=== PATIENT | male | born 1970 | race Caucasian/White ===

== ENCOUNTER 2017-05-17 08:28 | Observation (INO) | payer BC ==
[2017-05-17] MEDS ORDERED: ASPIRIN 81 MG CHEWABLE TABLETS PO ONE (09:05)
--- NOTE | 2017-05-17 09:14 | PDOC ---
History of Present Illness - General Chief Complaint: Chest Pain Stated Complaint: CHEST PAIN Time Seen by Provider: 05/17/17 08:41 History Source: Patient Exam Limitations: No Limitations - History of Present Illness Initial Comments: 05/17/17 09:10 46 year old male with pmhx of HTN, HLD, CARMEN(on bipap),depression , anxiety who present to the ED by EMS due to med sternal chest pain, 8/10 , pressure like not related to position, local non radiating to the arm or neck after emotional stress at work. The pain is constant,associated with sob, blurry vision, lightheadedness , little headache.pt reports 20 pound weight gain last year , affected his ability to walk and climb stairs. pt pt denies any nausea vomiting diarrhea or constipation, he denies recent cold or sick contact, denies fever , chills, denies any LE swelling,denies any urinary symptoms or abdominal pain. pt has echo, stress test and ekg one month ago at [facility] , result was normal (spoken with his administrative technician Dr Quinn over the phone [phone]) PCP: Dr. Jesus PMH: hTN, HLD, CARMEN , depression, anxiety PSH: denies Allergies : Augmentin, meds: enalapril 10 mg po daily, Lipitor 60 mg po daily, Xanax 1 mg po as needed, aciphex 20 mg po bid trintellix 25 mg po daily. FH: grand parents and father with CABG at age of 40 , mother with DM and HTN , father lung cancer , pneumonia. Social: quit smoking 11 years ago. smoked 1.5 ppd for 21 years, drink alcohol socially, denies any elicit drug abuse. Physical exam: General: agitated man , tachycardia tachypnech Head: NC/AT Eyes: BRIGIDO, EOMI, anicteric sclera, ENT: MM membranes Lungs: CTA B/L , no wheezes, no crackles, tacy pnech Heart: tachy cardic, normal S1, S2, no MRG Abdomen: obese, soft, ND, NT, +BS all Q Legs: no edema Neuro: no focal deficit , normal speech, normal gait Skin: warm and dry Psych: little agitated DD: precardial chest pain non significant /anxiety NSTEMI AR PE Atypical chest pain musculoskeletal work up: EKG: sinus tachy irais non specific st t wave changes , qtc 448 cardiac profile , bnp lipid panel PT, PTT, INR CXR cbc, cmp , mg , morphine 1 mg for pain o2 as needed to keep o2 sat > 92 % ASA chewable 324 mg once 05/17/17 09:22 05/17/17 09:37 05/17/17 09:43 05/17/17 09:43 05/17/17 10:38 trop came back positive 0.16 , will trend, second trop @ 3 pm pt still tachycardia 127 will give one dose of Lopressor 5 mg ivpush Heart score of 5 cxr no acute path 05/17/17 10:40 05/17/17 10:47 05/17/17 10:48 Past History - Past Medical History Allergies/Adverse Reactions: Allergies Allergy/AdvReac Type Severity Reaction Status Date / Time amoxicillin [From Augmentin] Allergy Verified 05/17/17 09:08 clavulanic acid Allergy Verified 05/17/17 09:08 [From Augmentin] Home Medications: Ambulatory Orders Alprazolam [Xanax] 1 mg PO DAILY 05/17/17 Atorvastatin Ca [Lipitor] 80 mg PO HS 05/17/17 Enalapril Maleate [Vasotec] 20 mg PO DAILY 05/17/17 Rabeprazole Sodium [Aciphex] 20 mg PO DAILY 05/17/17 ED Treatment Course - LABORATORY CBC & Chemistry Diagram: 05/17/17 09:35 05/17/17 09:35 - RADIOLOGY Radiology Studies Ordered: Category Date Time Status CHEST X-RAY PORTABLE* [RAD] Stat Radiology 05/17/17 09:06 Ordered *DC/Admit/Observation/Transfer Diagnosis at time of Disposition: AMA - Signed out against medical advice - Discharge Dispostion Disposition: AGAINST MEDICAL ADVICE - Referrals - Patient Instructions - Post Discharge Activity
[2017-05-17 09:15] VITALS: BMI 36.1
[2017-05-17] MEDS ORDERED: morphine CARPU-JECT 2 MG/1 ML DISP.SYRIN IVPUSH ONE (09:21)
[2017-05-17] MEDS ORDERED: morphine SULFATE 4 MG/ML VIAL ONE (09:28)
[2017-05-17] MEDS ORDERED: ALPRAZolam 2 MG TABLET PO ONE ×2 (09:38→11:57)
--- NOTE | 2017-05-17 09:49 | PDOC ---
Attending Attestation - Resident Resident Name: Shailesh Hagen - ED Attending Attestation I have performed the following: I have examined & evaluated the patient, The case was reviewed & discussed with the resident, I agree w/resident's findings & plan, Exceptions are as noted - HPI HPI: 05/17/17 09:44 46-year-old male with history of hypertension and high cholesterol presents with chest pain and palpitations after verbal argument at work this morning. Patient had verbal altercation with his superiors at work, developed precordial chest pressure with palpitations and got very worked up, EMS was activated. Symptoms are persistent. At baseline, patient has had exertional fatigue in the setting of 20 pound weight gain over the last 1 year, never gets chest pain. He had a normal echocardiogram and stress test 1 month ago as part of preoperative clearance for bariatric surgery. He stopped smoking 11 years ago, denies any drug or alcohol use, denies any PE risk factors. Denies any history of panic attacks but he does take Xanax every night - Physicial Exam PE: 05/17/17 09:46 Regular tachycardia at 130, intermittently tachypneic when becomes more anxious , O2 sat normal, blood pressure slightly elevated at 140/100 Alert, ambulated to the bathroom without difficulty and without change in his symptoms Heart is regular tachycardia, lungs are clear No edema Anxious during exam, no other acute psych issues - Medical Decision Making 05/17/17 09:47 Patient seen and evaluated with the resident. I agree with the overall evaluation, assessment, and management with the following summary of visit: 46-year-old male with chest pain in the setting of emotional triggers, presents with tachycardia and elevated blood pressure and anxiety. Suspect this is all part of a catecholamine surge, he has no known significant coronary artery disease with recent chest test just 1 month ago. Chest pain protocol initiated, will give aspirin and performed chest x-ray EKG shows sinus tachycardia without acute ischemic changes Trial of benzodiazepine given his history of Xanax use and the clinical setting Given atypical presentation and recently normal stress test, patient is a candidate for serial troponin if vitals normalize and his symptoms improve. 05/17/17 11:13 trop 0.16. persistent tachycardia despite ativan. given demand ischemia, rate controlled with toprol with improved HR to 95 and improved sxs. given equivocal trop and clinical presentation, placed on obs tele and signout given to Dr. hancock. Heart Score/ECG Review #1 General ECG Interpretation: Sinus Rhythm (tachycardia), Normal Intervals, No acute ischemic changes
[2017-05-17] MEDS ORDERED: LORazepam 2 MG/ML SDV VIAL ONE (09:52)
[2017-05-17 09:59] LABS: BASO % 0.4 % (0-2.0); EOS % 0.3 % (0-4.5); HEMOGLOBIN 15.1 GM/dL (11.7-16.9); LYMPH % 8.1 % (8-40); MCH 31.2 pg (25.7-33.7); MCHC 34.3 g/dl (32.0-35.9); MEAN PLT VOLUME 9.4 fl (7.5-11.1); NEUT % 85.2 % (42.8-82.8); PLATELET COUNT 248 K/MM3 (134-434); RBC 4.84 M/mm3 (4.00-5.60); RDW 13.1 % (11.9-15.9)
[2017-05-17 10:13] LABS: ALBUMIN 3.5 g/dl (3.4-5.0); ANION GAP 6 (8-16); BILIRUBIN,TOTAL 0.2 mg/dL (0.2-1.0); BLOOD UREA NITROGEN 25 mg/dL (7-18); CALCIUM 8.6 mg/dL (8.5-10.1); CHLORIDE 107 mmol/L (98-107); CO2 28 mmol/L (21-32); CREATININE 1.1 mg/dL (0.7-1.3); GLUCOSE,RANDOM 125 mg/dL (74-106); POTASSIUM 4.5 mmol/L (3.5-5.1); SGOT/AST 16 U/L (15-37); SGPT/ALT 20 U/L (12-78); SODIUM 141 mmol/L (136-145); TOT PROT 7.3 g/dl (6.4-8.2)
[2017-05-17 10:16] LABS: ALK PHOS 82 U/L (45-117)
[2017-05-17 10:31] LABS: INR 0.97 (0.82-1.09)
[2017-05-17] MEDS ORDERED: METOPROLOL TARTRATE 5 MG/5 ML VIAL IVPUSH ONE (10:38)
[2017-05-17] MEDS ORDERED: metoPROLOL SUCCINATE 25 MG TAB.SR.24H (FP) PO ONE (11:05)
[2017-05-17] MEDS ORDERED: METOPROLOL TARTRATE 5 MG/5 ML VIAL ONE (11:05)
--- NOTE | 2017-05-17 11:06 | EKG ---
Test Reason : Blood Pressure : / mmHG Vent. Rate : 134 BPM Atrial Rate : 134 BPM P-R Int : 138 ms QRS Dur : 086 ms QT Int : 300 ms P-R-T Axes : 047 061 025 degrees QTc Int : 448 ms SINUS TACHYCARDIA CANNOT RULE OUT ANTERIOR INFARCT , AGE UNDETERMINED ABNORMAL ECG WHEN COMPARED WITH ECG OF 01-MAY-2008 09:52, NO SIGNIFICANT CHANGE WAS FOUND Confirmed by Ramón Brady ([id number]) on 05/17/2017 11:06:01 AM Referred By: Confirmed By:Ramón Brady
--- NOTE | 2017-05-17 11:36 | HP ---
Admitting History and Physical - Primary Care Physician PCP: Rony Jesus - Admission Chief Complaint: chest pain History of Present Illness: ER History - History of Present Illness Initial Comments: 05/17/17 09:10 46 year old male with pmhx of HTN, HLD, CARMEN(on bipap),depression , anxiety who present to the ED by EMS due to med sternal chest pain, 8/10 , pressure like not related to position, local non radiating to the arm or neck after emotional stress at work. The pain is constant,associated with sob, blurry vision, lightheadedness , little headache.pt reports 20 pound weight gain last year , affected his ability to walk and climb stairs. pt pt denies any nausea vomiting diarrhea or constipation, he denies recent cold or sick contact, denies fever , chills, denies any LE swelling,denies any urinary symptoms or abdominal pain. 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 Jesus Pt seen by me in ER Pt is a school fundraising director and this AM at work he had stress where he experienced chest pain -- pressure like sensation -- no radiation of pain . No nausea, diaphoresis Pt very anxious, suffers from anxiety . His heart rate was also racing. No SOB had cardiology evaluation for bariatric surgery this month -- negative stress test History Source: Patient Limitations to Obtaining History: No Limitations - Past Medical History Cardiovascular: Yes: HTN, Hyperlipdemia Pulmonary: Yes: Sleep Apnea Psych: Yes: Anxiety - Smoking History Smoking history: Former smoker Have you smoked in the past 12 months: No If you are a former smoker, when did you quit?: 4 Home Medications - Allergies Allergies/Adverse Reactions: Allergies Allergy/AdvReac Type Severity Reaction Status Date / Time amoxicillin [From Augmentin] Allergy Verified 05/17/17 09:08 clavulanic acid Allergy Verified 05/17/17 09:08 [From Augmentin] - Home Medications Home Medications: Ambulatory Orders Alprazolam [Xanax] 1 mg PO DAILY 05/17/17 Atorvastatin Ca [Lipitor] 80 mg PO HS 05/17/17 Enalapril Maleate [Vasotec] 20 mg PO DAILY 05/17/17 Rabeprazole Sodium [Aciphex] 20 mg PO DAILY 05/17/17 Review of Systems - Review of Systems Constitutional: denies: Chills, Fever, Weakness Cardiovascular: reports: Chest Pain, Palpitations. denies: Shortness of Breath Psychiatric: reports: Anxiety Physical Examination Vital Signs: Vital Signs Temperature Pulse Rate 99 H 05/17/17 11:27 Respiratory Rate 18 05/17/17 11:00 Blood Pressure 140/96 05/17/17 11:00 O2 Sat by Pulse Oximetry (%) 100 05/17/17 11:00 Constitutional: Yes: No Distress, Calm Cardiovascular: Yes: Regular Rate and Rhythm Respiratory: Yes: CTA Bilaterally Gastrointestinal: Yes: Normal Bowel Sounds, Soft. No: Tenderness Edema: No Psychiatric: Yes: Alert, Oriented Labs: CBC, BMP 05/17/17 09:35 05/17/17 09:35 Imaging - Results Chest X-ray: Image Reviewed (clear) EKG: Image Reviewed (sinus tachycardia) Problem List - Problems (1) Chest pain Code(s): R07.9 - CHEST PAIN, UNSPECIFIED (2) Anxiety Code(s): F41.9 - ANXIETY DISORDER, UNSPECIFIED (3) HTN (hypertension) Code(s): I10 - ESSENTIAL (PRIMARY) HYPERTENSION Assessment/Plan PLAN Check serial cardiac enzymes Cardiology eval ASA continue with meds Lopressor IV Echo check TSH DVT Prophylaxis-- Heparin sc
[2017-05-17 11:50] LABS: CHOLESTEROL 152 mg/dL (50-200); MAGNESIUM 2.2 mg/dL (1.8-2.4)
[2017-05-17 11:52] LABS: TRIGLYCERIDES 24 mg/dL (35-160)
[2017-05-17 11:58] LABS: HDL CHOLESTEROL 54 mg/dL (40-60); N-TERMINAL BNP 1547.29 pg/ml (5-125)
[2017-05-17] MEDS ORDERED: ALPRAZolam 2 MG TABLET ONE (13:05)
[2017-05-17 15:14] VITALS: BP 141/85; PULSE 81
--- NOTE | 2017-05-17 18:17 | DS ---
Physical Examination Vital Signs: Vital Signs Temperature Pulse Rate 81 05/17/17 15:00 Respiratory Rate 18 05/17/17 15:00 Blood Pressure 141/85 05/17/17 15:00 O2 Sat by Pulse Oximetry (%) 99 05/17/17 15:00 Labs: CBC, BMP 05/17/17 09:35 05/17/17 09:35 Discharge Summary Reason For Visit: CHEST PAIN DUE TO CORONARY SRTERY DISEASE Hospital Course: Pt admitted for chest pain Pt signed out AMA Explained risks - Instructions Disposition: AGAINST MEDICAL ADVICE - Home Medications Comprehensive Discharge Medication List: Ambulatory Orders Alprazolam [Xanax] 1 mg PO DAILY 05/17/17 Atorvastatin Ca [Lipitor] 80 mg PO HS 05/17/17 Enalapril Maleate [Vasotec] 20 mg PO DAILY 05/17/17 Rabeprazole Sodium [Aciphex] 20 mg PO DAILY 05/17/17
[2017-05-17] MEDS ORDERED: ATORVASTATIN CA 80 MG TABLET (FP) PO SCH (22:00)
[2017-05-18] MEDS ORDERED: metoPROLOL SUCCINATE 25 MG TAB.SR.24H (FP) PO SCH (10:00)
[2017-05-18] MEDS ORDERED: ALPRAZolam 2 MG TABLET PO SCH (10:00)
[2017-05-18] MEDS ORDERED: ASPIRIN 81 MG CHEWABLE TABLETS PO SCH (10:00)
[2017-05-18] MEDS ORDERED: ENALAPRIL MALEATE 10 MG TABLET (FP) PO SCH (10:00)
== END 2017-05-17 15:15 | disposition left against medical advice (07) ==
LOC: JER 08:28 → JERBED 10:32
PROVIDERS: ADMIT Internal Medicine; ATTEND Internal Medicine
PROC: 3E033NZ Introduction of Analgesics, Hypnotics, Sedatives into Peripheral Vein, Percutaneous Approach (ICD-10-PCS; principal; 2017-05-17)
PROC: 3E033GC Introduction of Other Therapeutic Substance into Peripheral Vein, Percutaneous Approach (ICD-10-PCS; 2017-05-17)
DX: R07.9 Chest pain, unspecified (principal); I10 Essential (primary) hypertension; E78.5 Hyperlipidemia, unspecified; F32.9 Major depressive disorder, single episode, unspecified; F41.9 Anxiety disorder, unspecified; G47.33 Obstructive sleep apnea (adult) (pediatric); R00.0 Tachycardia, unspecified; Z99.89 Dependence on other enabling machines and devices; Z87.891 Personal history of nicotine dependence
CPT/HCPCS: 36415; 71045-TC-FY; 80053; 80061; 82550; 82553; 83721; 83735; 83880; 84484; 85025; 85610; 93005; 93010; 93306-TC; 96374; 96375; 99283-25; G0378